=== PATIENT | female | born 1980 | race Hispanic/Latino ===

== ENCOUNTER 2023-09-13 12:36 | Emergency (ER) | payer OTHER ==
[~2023-09-13] VITALS: Ht 154.9 cm; Wt 102.1 kg
[2023-09-13] MEDS ORDERED: KETOROLAC 30MG VIAL (30MG/ML) IM ONE (13:30)
[2023-09-13] MEDS ORDERED: CYCLOBENZAPRINE HCL 10 MG TABLET PO ONE (13:30)
[2023-09-13] MEDS ORDERED: IBUP-2071 PO (15:56)
[2023-09-13] MEDS ORDERED: METH-811 PO (15:56)
[2023-09-13 15:58] VITALS: BP 138/88; PULSE 75; RESP 16; O2SAT 97
== END 2023-09-13 16:05 | disposition home or self-care (01) ==
LOC: EDH 12:36
DX: M25.561 Pain in right knee (principal); M25.551 Pain in right hip; M79.651 Pain in right thigh; M54.2 Cervicalgia; Z79.899 Other long term (current) drug therapy; Z98.890 Other specified postprocedural states; W18.39XA Other fall on same level, initial encounter; Y93.01 Activity, walking, marching and hiking; Y92.89 Other specified places as the place of occurrence of the external cause; Y99.8 Other external cause status
CPT/HCPCS: 99285; 72125; 73502; 73552; 73562; 96372; J1885